=== PATIENT | male | born 1985 | race Caucasian/White ===

== ENCOUNTER 2017-01-13 08:24 | Day surgery (SDC) | payer OTHER ==
[~2017-01-13] VITALS: Ht 177.8 cm; Wt 69.4 kg
[2017-01-13 09:33] VITALS: BP 120/69; Ht 177.8 cm; Wt 69.4 kg
[2017-01-13] MEDS ORDERED: HYDROCODONE-APA1 TAB PO (13:28)
--- NOTE | 2017-01-13 14:52 | NUR ---
LEFT FOREARM PIV DC'D WITH TIP INTACT, DRESSING IN [facility] CLOTHING, GUARDS AT BEDSIDE
--- NOTE | 2017-01-13 15:15 | NUR ---
DISCHARGED TO [facility]RECTIONAL FACILITY VIA WHEELCHAIR TO TRANSPORT VAN, PATIENT AWAKE, ALERT, DENIES COMPLAINTS
--- NOTE | 2017-02-03 14:52 | OP ---
PATIENT NAME: DHEERAJ QIU MEDICAL RECORD: [id number] :87 LOCATION:D.OPS ADMISSION DATE: SURGEON: DHEERAJ POSEY MD DATE OF OPERATION: 01/13/2017 PREOPERATIVE DIAGNOSIS: Displaced left fourth metacarpal fracture. POSTOPERATIVE DIAGNOSIS: Displaced left fourth metacarpal fracture. PROCEDURE: Open reduction internal fixation of displaced left fourth metacarpal fracture. SURGEON: Dheeraj Posey MD ANESTHESIA: General. INTRAOPERATIVE COMPLICATIONS: None. SUMMARY OF PATHOLOGIC FINDINGS: The patient has displaced left fourth metacarpal. He did have some healing that required substantial amount of takedown for internal fixation. OPERATIVE SUMMARY IN DETAIL: After obtaining the appropriate preoperative orthopedic surgery consents as well as anesthetic consultation, evaluation and clearance operating room and placed on table in supine position. After general laryngeal mask was administered, tourniquet was placed about the proximal aspect of the left upper extremity. Left upper extremity was then prepped and draped in a routine sterile fashion. The patient's arm was elevated and exsanguinated, tourniquet inflated to 250 mmHg. An incision was made directly over the fracture site. Subperiosteal dissection was carried down copious amounts of hematoma and bone formation was taken down back to the bois forte bone. It was then held in place and a 2.0 birail 8-hole plate was then placed and serial drill and fill resulted in excellent anatomic fixation of the finger. Having completed this, the wound was copiously irrigated and closed with 4-0 Prolene in running fashion. Sterile dressings were applied. The patient was awakened, taken to recovery room in stable condition. All final needle and sponge counts were correct. TRANSINT:[id number] Voice Confirmation ID: [id number] DOCUMENT ID: [id number] DHEERAJ POSEY MD at 1452 CC: [id number] DICTATION DATE: 01/30/17 1004 MEAT TEAM LEAD: 01/30/17 1759 [facility] 01/13/[address] [id number]
== END 2017-01-13 15:15 | disposition home or self-care (01) ==
LOC: D.OPS 08:24
DX: S62.305A Unspecified fracture of fourth metacarpal bone, left hand, initial encounter for closed fracture (principal); F17.200 Nicotine dependence, unspecified, uncomplicated